=== PATIENT | male | born 1945 | race Caucasian/White ===

== ENCOUNTER 2023-06-18 00:30 | Inpatient (IN) | payer MEDICARE ==
[~2023-06-18] VITALS: Ht 162.6 cm; Wt 51.0 kg
[2023-06-18] VITALS (16 sets, daily range): BP systolic 94–113; BP diastolic 56–70; PULSE 70–110; RESP 18–35; TEMP 97.3–98.9; O2SAT 85–96
[2023-06-18] MEDS: normal saline 1000ML IV soln IVB ONE (01:07)
[2023-06-18 01:29] LABS: ALANINE AMINOTRANSFERASE 9 U/L (12-78); ALBUMIN 2.1 G/DL (3.4-5.0); ALBUMIN/GLOBULIN RATIO 0.6 (1.1-1.5); ALKALINE PHOSPHATASE 54 IU/L (46-116); ANION GAP 8 (8-16); ASPARTATE AMINO TRANSFERASE 38 U/L (10-37); BILIRUBIN,TOTAL 0.4 MG/DL (0.1-1.0); BLOOD UREA NITROGEN 34 MG/DL (7-18); BUN/CREATININE RATIO 38.6 (10.0-20.0); CHLORIDE 106 MMOL/L (99-107); CREATININE 0.88 MG/DL (0.60-1.10); GLUCOSE 144 MG/DL (70-104); POTASSIUM 3.5 MMOL/L (3.5-5.1); SODIUM 141 MMOL/L (135-145); TOTAL CARBON DIOXIDE 27.2 MMOL/L (24-32); TOTAL PROTEIN 5.8 G/DL (6.4-8.2); eCRCL 49 ML/MIN; eGFR 84 ML/MIN
[2023-06-18 01:37] LABS: PRO BRAIN NATRIURETIC PEPTIDE 9840 PG/ML (0-450)
[2023-06-18] MEDS: piperacillin/tazo 3.375gm/50ml 50 ML IV ONE (01:50)
[2023-06-18 02:00] LABS: ABG BASE EXCESS -1.4 mmol/L (-2.0-2.0); ABG HCO3 19.5 mmol/L (22.0-26.0); ABG OXYGEN SATURATION 86.6 % (94-97); ABG PCO2 (T) 25.1 mmHg (35.0-48.0); ABG PH (T) 7.508 (7.340-7.440); ABG PO2 (T) 48.7 mmHg (75.0-100.0); ALLEN'S TEST Modified; FCOHb 0.4 % (0.0-3.9); FHHb 13.3 % (0.0-5.0); FMetHb 0.1 % (0.0-1.5); FO2Hb 86.2 % (94-97); TOTAL HEMOGLOBIN 17.2 G/dl (14.0-17.9)
[2023-06-18] MEDS: albuterol 2.5 MG/3 ML nebule CONTNEB PRN (02:04)
[2023-06-18] MEDS ORDERED: magnesium 4gm in 100ml NS 100 ML IV PRN (02:15)
[2023-06-18] MEDS ORDERED: magnesium hydroxide 30ml (MOM) UD suspension PO PRN (02:15)
[2023-06-18] MEDS ORDERED: morphine 2 MG/ML inj. syringe IV PRN ×2 (02:15)
[2023-06-18] MEDS ORDERED: HYDROcodone/acetaminophen 5mg/325mg tablet PO PRN (02:15)
[2023-06-18] MEDS ORDERED: HYDROcodone/acetaminophen 10/325mg tab PO PRN (02:15)
[2023-06-18] MEDS ORDERED: ondansetron/PF 4mg/2ml inj IV PRN (02:15)
[2023-06-18] MEDS ORDERED: acetaminophen 325mg tablet PO PRN (02:15)
[2023-06-18] MEDS ORDERED: magnesium 2GM in 50ml NS 50 ML IV PRN (02:15)
[2023-06-18] MEDS ORDERED: potassium Cl 40MEQ/1/2NS 520ml 520 ML IV PRN (02:15)
[2023-06-18] MEDS ORDERED: potassium Cl 20 mEq SR tablet PO PRN (02:15)
[2023-06-18 02:52] LABS: HEMATOCRIT 46.9 % (42.0-52.0); MEAN CORPUSCULAR HEMOGLOBIN 34.2 PG (27.0-31.0); MEAN CORPUSCULAR HGB CONC 34.1 g/dL (33.0-36.5); MEAN CORPUSCULAR VOLUME 100.1 FL (78-98); MEAN PLATELET VOLUME 11.1 FL (7.4-10.4); PLATELET COUNT 134 X10'3 (140-440); RED BLOOD COUNT 4.69 X10'6 (4.70-6.10); RED CELL DISTRIBUTION WIDTH 13.5 % (11.5-14.5); WHITE BLOOD COUNT 12.2 X10'3 (4.5-11.0)
[2023-06-18] MEDS ORDERED: LEVO25TA2 PO (02:57)
[2023-06-18 03:01] LABS: D-DIMER 1.78 MG/L FEU (0-0.50)
[2023-06-18 03:09] LABS: OSMOLALITY 296 MOSM/K (280-300)
[2023-06-18 03:16] LABS: CREATINE KINASE 29 U/L (39-308); MAGNESIUM 1.8 MG/DL (1.5-2.4); PHOSPHORUS 2.7 MG/DL (2.3-4.5); POTASSIUM 3.5 MMOL/L (3.5-5.1); THYROID STIMULATING HORMONE 0.38 ulU/ml (0.34-4.50)
[2023-06-18] MEDS: furosemide 10 MG/1 ML 10ml inj IV ONE (03:16)
[2023-06-18] MEDS: normal saline 1000ml 1,000 ML IV SCH (03:21)
[2023-06-18] MEDS: oseltamivir phos 75mg capsule PO SCH (04:02)
[2023-06-18 04:11] LABS: PLATELET ESTIMATE DECREASED; TOTAL CELLS COUNTED 100
[2023-06-18 04:12] LABS: BURR CELLS 2+; GIANT PLATELET FEW; LARGE PLATELETS FEW; SMUDGE CELLS FEW
[2023-06-18 04:17] LABS: BILIRUBIN,URINE NEGATIVE (Neg); CLARITY,URINE CLEAR (Clear); GLUCOSE, URINE NEGATIVE (Neg); KETONES,URINE NEGATIVE (Neg); LEUKOCYTE ESTERASE ,URINE NEGATIVE (Neg); NITRITES, URINE NEGATIVE (Neg); OCCULT BLOOD,URINE NEGATIVE (Neg); PROTEIN,URINE 100 mg/dl (Neg); UROBILINOGEN,URINE 0.2 E.U/dL (0.2-1.0)
[2023-06-18 04:22] LABS: COLOR,URINE DARK YELLOW (Yellow); UA COLLECTION TYPE CLN CATCH MIDSTREAM
[2023-06-18 04:32] LABS: CELLULAR CAST 0-4 /LPF (NEGATIVE); MUCUS STRANDS MANY /LPF (Neg); SQUAMOUS EPITHELIAL CELL,UR FEW /LPF (FEW)
[2023-06-18 04:33] LABS: RENAL CELLS, URINE FEW /HPF
[2023-06-18 04:34] LABS: TRANSITIONAL EPI CELLS,URINE FEW /HPF
[2023-06-18 04:36] LABS: BACTERIA,URINE 1+ /HPF (Neg); RBC,URINE 0-2 /HPF (0-2)
[2023-06-18] MEDS: K and/or MAG REPLACEMENT MC SCH (08:00)
[2023-06-18] MEDS: CefTRIAXone/D5W-Rocephin 1gm 50 ML IV SCH (08:00)
[2023-06-18] MEDS ORDERED: azithromycin 250mg tablet PO SCH (08:00)
[2023-06-18] MEDS: azithromycin/NS 500mg/250ml 250 ML IV SCH (08:00)
[2023-06-18] MEDS: pantoprazole 40 MG vial IV SCH (08:00)
[2023-06-18] MEDS: apixaban 5mg tablet PO SCH (08:00)
[2023-06-18] MEDS ORDERED: heparin, porcine 5000 units/ml vial SQ SCH (08:00)
[2023-06-18] MEDS: metoprolol succinate 25mg (24-HOUR) SR. Tablet PO SCH (08:00)
[2023-06-18] MEDS: docusate sod 100mg capsule PO SCH (08:00)
[2023-06-18] MEDS ORDERED: piperacillin/tazo 3.375gm/50ml 50 ML IV SCH (08:00)
[2023-06-18 08:27] LABS: CHOL/HDL RATIO 1.3 (0.00-4.99); CHOLESTEROL 85 MG/DL (0-200); HDL CHOLESTEROL 66 MG/DL (35-60); LDL CHOLESTEROL 17 MG/DL (50-100); TRIGLYCERIDES 47 MG/DL (20-135)
[2023-06-18] MEDS: piperacillin/tazo 3.375gm/50ml 50 ML IV SCH (10:00)
[2023-06-18] MEDS: furosemide 40mg/4ml inj IV SCH (10:41)
[2023-06-18] MEDS: vancomycin/NS 1 GM ADD-VANTAGE 250 ML IV SCH (10:41)
[2023-06-19] VITALS (13 sets, daily range): BP systolic 114–136; BP diastolic 66–74; PULSE 64–98; RESP 18–32; TEMP 97–97.6; O2SAT 90–97
[2023-06-19 06:44] LABS: BASOPHILS % (AUTO) 0.2 % (0-1); EOSINOPHILS % (AUTO) 0.1 % (0-6); HEMATOCRIT 44.7 % (42.0-52.0); HEMOGLOBIN 15.3 g/dl (14.0-17.9); LYMPHOCYTES # (AUTO) 0.8 X10'3 (1.1-4.8); LYMPHOCYTES % (AUTO) 11.1 % (21-51); MEAN CORPUSCULAR HEMOGLOBIN 34.4 PG (27.0-31.0); MEAN CORPUSCULAR HGB CONC 34.3 g/dL (33.0-36.5); MEAN CORPUSCULAR VOLUME 100.3 FL (78-98); MONOCYTES # (AUTO) 0.6 X10'3 (0-0.9); NEUTROPHILS # (AUTO) 6.1 X10'3 (1.8-7.7); NEUTROPHILS % (AUTO) 80.6 % (42-75); PLATELET COUNT 122 X10'3 (140-440); RED BLOOD COUNT 4.46 X10'6 (4.70-6.10); RED CELL DISTRIBUTION WIDTH 13.6 % (11.5-14.5); WHITE BLOOD COUNT 7.5 X10'3 (4.5-11.0)
[2023-06-19 07:00] LABS: ALANINE AMINOTRANSFERASE 8 U/L (12-78); ALBUMIN 1.7 G/DL (3.4-5.0); ALBUMIN/GLOBULIN RATIO 0.5 (1.1-1.5); ALKALINE PHOSPHATASE 42 IU/L (46-116); ANION GAP 11 (8-16); ASPARTATE AMINO TRANSFERASE 33 U/L (10-37); BILIRUBIN,TOTAL 0.3 MG/DL (0.1-1.0); BLOOD UREA NITROGEN 29 MG/DL (7-18); BUN/CREATININE RATIO 38.7 (10.0-20.0); CALCIUM 7.2 MG/DL (8.5-10.1); CHLORIDE 107 MMOL/L (99-107); CREATININE 0.75 MG/DL (0.60-1.10); GLUCOSE 108 MG/DL (70-104); MAGNESIUM 1.7 MG/DL (1.5-2.4); SODIUM 143 MMOL/L (135-145); TOTAL CARBON DIOXIDE 25.5 MMOL/L (24-32); TOTAL PROTEIN 5.1 G/DL (6.4-8.2); eCRCL 59 ML/MIN; eGFR > 90 ML/MIN
[2023-06-19 07:04] LABS: POTASSIUM 2.6 MMOL/L (3.5-5.1)
[2023-06-19 07:06] LABS: BURR CELLS 2+; LARGE PLATELETS FEW; PLATELET ESTIMATE DECREASED; TOTAL CELLS COUNTED 100; TOXIC GRANULATION 1+
[2023-06-19 07:07] LABS: ROULEAUX 1+
[2023-06-19] MEDS: vancomycin/NS 1 GM ADD-VANTAGE 250 ML IV SCH (08:49)
[2023-06-19] MEDS: potassium Cl 20 mEq SR tablet PO PRN (08:51)
[2023-06-19] MEDS: azithromycin/NS 500mg/250ml 250 ML IV SCH (21:20)
[2023-06-19] MEDS: CefTRIAXone/D5W-Rocephin 1gm 50 ML IV SCH (21:21)
[2023-06-20] VITALS (16 sets, daily range): BP systolic 109–130; BP diastolic 63–90; PULSE 58–92; RESP 16–35; TEMP 97.6–98.2; O2SAT 84–98
[2023-06-20 06:24] LABS: EOSINOPHILS % (AUTO) 0.1 % (0-6); LYMPHOCYTES # (AUTO) 0.9 X10'3 (1.1-4.8); MONOCYTES # (AUTO) 0.9 X10'3 (0-0.9); NEUTROPHILS # (AUTO) 7.3 X10'3 (1.8-7.7); WHITE BLOOD COUNT 9.1 X10'3 (4.5-11.0)
[2023-06-20 06:28] LABS: BASOPHILS % (AUTO) 0.1 % (0-1); HEMATOCRIT 44.9 % (42.0-52.0); HEMOGLOBIN 15.3 g/dl (14.0-17.9); LYMPHOCYTES % (AUTO) 9.7 % (21-51); MEAN CORPUSCULAR HEMOGLOBIN 34.1 PG (27.0-31.0); MEAN CORPUSCULAR VOLUME 100.3 FL (78-98); MEAN PLATELET VOLUME 10.6 FL (7.4-10.4); MONOCYTES % (AUTO) 9.8 % (2-12); NEUTROPHILS % (AUTO) 80.3 % (42-75); PLATELET COUNT 152 X10'3 (140-440); RED BLOOD COUNT 4.48 X10'6 (4.70-6.10); RED CELL DISTRIBUTION WIDTH 13.8 % (11.5-14.5)
[2023-06-20 06:41] LABS: ALANINE AMINOTRANSFERASE 9 U/L (12-78); ALBUMIN 1.7 G/DL (3.4-5.0); ALBUMIN/GLOBULIN RATIO 0.4 (1.1-1.5); ALKALINE PHOSPHATASE 48 IU/L (46-116); ANION GAP 8 (8-16); ASPARTATE AMINO TRANSFERASE 30 U/L (10-37); BILIRUBIN,TOTAL 0.4 MG/DL (0.1-1.0); BLOOD UREA NITROGEN 21 MG/DL (7-18); BUN/CREATININE RATIO 31.3 (10.0-20.0); CALCIUM 7.6 MG/DL (8.5-10.1); CHLORIDE 109 MMOL/L (99-107); CREATININE 0.67 MG/DL (0.60-1.10); GLUCOSE 123 MG/DL (70-104); MAGNESIUM 1.4 MG/DL (1.5-2.4); SODIUM 143 MMOL/L (135-145); TOTAL CARBON DIOXIDE 26.4 MMOL/L (24-32); TOTAL PROTEIN 5.6 G/DL (6.4-8.2); eCRCL 66 ML/MIN; eGFR > 90 ML/MIN
[2023-06-20 06:44] LABS: POTASSIUM 3.7 MMOL/L (3.5-5.1)
[2023-06-20] MEDS: lactose-reduced food (Ensure High Protein) 237ml bottle PO SCH (13:00)
[2023-06-20] MEDS: magnesium Cl slow-release 64mg tablet PO PRN (17:55)
[2023-06-20] MEDS ORDERED: VANCOMYCIN LEVEL IV ONE (19:30)
[2023-06-21] VITALS (13 sets, daily range): BP systolic 108–120; BP diastolic 64–77; PULSE 72–105; RESP 20–38; TEMP 96.9–98.9; O2SAT 92–97
[2023-06-21 06:22] LABS: BASOPHILS % (AUTO) 0.1 % (0-1); EOSINOPHILS % (AUTO) 0.2 % (0-6); HEMATOCRIT 44.5 % (42.0-52.0); HEMOGLOBIN 14.9 g/dl (14.0-17.9); LYMPHOCYTES # (AUTO) 0.8 X10'3 (1.1-4.8); LYMPHOCYTES % (AUTO) 6.9 % (21-51); MEAN CORPUSCULAR HEMOGLOBIN 33.5 PG (27.0-31.0); MEAN CORPUSCULAR HGB CONC 33.5 g/dL (33.0-36.5); MEAN CORPUSCULAR VOLUME 100.2 FL (78-98); MEAN PLATELET VOLUME 10.5 FL (7.4-10.4); MONOCYTES # (AUTO) 0.9 X10'3 (0-0.9); MONOCYTES % (AUTO) 7.5 % (2-12); NEUTROPHILS # (AUTO) 10.4 X10'3 (1.8-7.7); NEUTROPHILS % (AUTO) 85.3 % (42-75); PLATELET COUNT 178 X10'3 (140-440); RED BLOOD COUNT 4.44 X10'6 (4.70-6.10); RED CELL DISTRIBUTION WIDTH 13.2 % (11.5-14.5); WHITE BLOOD COUNT 12.2 X10'3 (4.5-11.0)
[2023-06-21 06:32] LABS: BILIRUBIN,URINE SMALL (Neg); CLARITY,URINE TURBID (Clear); COLOR,URINE AMBER (Yellow); GLUCOSE, URINE NEGATIVE (Neg); KETONES,URINE TRACE mg/dl (Neg); LEUKOCYTE ESTERASE ,URINE NEGATIVE (Neg); NITRITES, URINE NEGATIVE (Neg); OCCULT BLOOD,URINE LARGE (Neg); PH,URINE 6.5 (4.8-8.0); PROTEIN,URINE 100 mg/dl (Neg); UROBILINOGEN,URINE 0.2 E.U/dL (0.2-1.0)
[2023-06-21 06:34] LABS: ALANINE AMINOTRANSFERASE 8 U/L (12-78); ALBUMIN 1.7 G/DL (3.4-5.0); ALBUMIN/GLOBULIN RATIO 0.4 (1.1-1.5); ALKALINE PHOSPHATASE 45 IU/L (46-116); ANION GAP 9 (8-16); ASPARTATE AMINO TRANSFERASE 24 U/L (10-37); BILIRUBIN,TOTAL 0.6 MG/DL (0.1-1.0); BLOOD UREA NITROGEN 18 MG/DL (7-18); BUN/CREATININE RATIO 29.5 (10.0-20.0); CALCIUM 7.2 MG/DL (8.5-10.1); CHLORIDE 108 MMOL/L (99-107); CREATININE 0.61 MG/DL (0.60-1.10); GLUCOSE 117 MG/DL (70-104); MAGNESIUM 1.4 MG/DL (1.5-2.4); SODIUM 144 MMOL/L (135-145); TOTAL CARBON DIOXIDE 27.1 MMOL/L (24-32); TOTAL PROTEIN 5.8 G/DL (6.4-8.2); eCRCL 72 ML/MIN; eGFR > 90 ML/MIN
[2023-06-21 06:54] LABS: UA COLLECTION TYPE VOIDED
[2023-06-21 06:55] LABS: BACTERIA,URINE FEW /HPF (Neg); MUCUS STRANDS FEW /LPF (Neg); RBC,URINE TNTC /HPF (0-2); SQUAMOUS EPITHELIAL CELL,UR FEW /LPF (FEW); WBC,URINE 0-4 /HPF (0-4)
[2023-06-21] MEDS ORDERED: magnesium 4gm in 100ml NS 100 ML IV PRN (09:45)
[2023-06-21] MEDS ORDERED: magnesium 2GM in 50ml NS 50 ML IV PRN (09:45)
[2023-06-21] MEDS ORDERED: magnesium Cl slow-release 64mg tablet PO PRN (09:45)
[2023-06-21] MEDS ORDERED: potassium Cl 40MEQ/1/2NS 520ml 520 ML IV PRN (09:45)
[2023-06-21] MEDS ORDERED: potassium Cl 20 mEq SR tablet PO PRN (09:45)
[2023-06-21] MEDS: pantoprazole 40mg Tablet.DR PO SCH (10:29)
[2023-06-21] MEDS: potassium Cl 20 mEq SR tablet PO PRN (10:30)
[2023-06-21] MEDS: furosemide 40mg/4ml inj IV SCH (12:00)
[2023-06-22] VITALS (13 sets, daily range): BP systolic 108–131; BP diastolic 62–74; PULSE 70–84; RESP 18–25; TEMP 97.7–98.4; O2SAT 91–97
[2023-06-22 06:09] LABS: BASOPHILS % (AUTO) 0.2 % (0-1); EOSINOPHILS # (AUTO) 0.1 X10'3 (0-0.9); HEMOGLOBIN 14.5 g/dl (14.0-17.9); LYMPHOCYTES # (AUTO) 0.9 X10'3 (1.1-4.8); MONOCYTES # (AUTO) 0.9 X10'3 (0-0.9); NEUTROPHILS # (AUTO) 6.1 X10'3 (1.8-7.7); NEUTROPHILS % (AUTO) 76.7 % (42-75)
[2023-06-22 06:12] LABS: HEMATOCRIT 42.1 % (42.0-52.0); LYMPHOCYTES % (AUTO) 11.3 % (21-51); MEAN CORPUSCULAR HEMOGLOBIN 34.2 PG (27.0-31.0); MEAN CORPUSCULAR HGB CONC 34.4 g/dL (33.0-36.5); MEAN CORPUSCULAR VOLUME 99.5 FL (78-98); MEAN PLATELET VOLUME 10.4 FL (7.4-10.4); MONOCYTES % (AUTO) 10.8 % (2-12); PLATELET COUNT 201 X10'3 (140-440); RED BLOOD COUNT 4.22 X10'6 (4.70-6.10); RED CELL DISTRIBUTION WIDTH 13.8 % (11.5-14.5); WHITE BLOOD COUNT 7.9 X10'3 (4.5-11.0)
[2023-06-22 06:32] LABS: ALBUMIN 1.6 G/DL (3.4-5.0); ALBUMIN/GLOBULIN RATIO 0.4 (1.1-1.5); ALKALINE PHOSPHATASE 47 IU/L (46-116); ANION GAP 5 (8-16); ASPARTATE AMINO TRANSFERASE 23 U/L (10-37); BILIRUBIN,TOTAL 0.6 MG/DL (0.1-1.0); BLOOD UREA NITROGEN 20 MG/DL (7-18); BUN/CREATININE RATIO 28.2 (10.0-20.0); CALCIUM 7.4 MG/DL (8.5-10.1); CHLORIDE 109 MMOL/L (99-107); CREATININE 0.71 MG/DL (0.60-1.10); GLUCOSE 115 MG/DL (70-104); MAGNESIUM 1.6 MG/DL (1.5-2.4); POTASSIUM 4.3 MMOL/L (3.5-5.1); PRO BRAIN NATRIURETIC PEPTIDE 2894 PG/ML (0-450); SODIUM 143 MMOL/L (135-145); TOTAL PROTEIN 5.6 G/DL (6.4-8.2); eCRCL 62 ML/MIN; eGFR > 90 ML/MIN
[2023-06-22 06:42] LABS: ALANINE AMINOTRANSFERASE < 6 U/L (12-78)
[2023-06-22 07:25] LABS: LARGE PLATELETS MODERATE; PLATELET ESTIMATE NORMAL
[2023-06-23] VITALS (7 sets, daily range): BP systolic 105–122; BP diastolic 65–70; PULSE 58–85; RESP 18–24; TEMP 97.7–98; O2SAT 93–97
[2023-06-23 06:53] LABS: BASOPHILS % (AUTO) 0.1 % (0-1); EOSINOPHILS % (AUTO) 0.1 % (0-6); HEMATOCRIT 40.9 % (42.0-52.0); HEMOGLOBIN 13.9 g/dl (14.0-17.9); LYMPHOCYTES # (AUTO) 0.6 X10'3 (1.1-4.8); LYMPHOCYTES % (AUTO) 11.6 % (21-51); MEAN CORPUSCULAR HEMOGLOBIN 33.7 PG (27.0-31.0); MEAN CORPUSCULAR VOLUME 99.2 FL (78-98); MEAN PLATELET VOLUME 10.2 FL (7.4-10.4); MONOCYTES # (AUTO) 0.7 X10'3 (0-0.9); MONOCYTES % (AUTO) 13.6 % (2-12); NEUTROPHILS # (AUTO) 3.6 X10'3 (1.8-7.7); NEUTROPHILS % (AUTO) 74.6 % (42-75); PLATELET COUNT 252 X10'3 (140-440); RED BLOOD COUNT 4.13 X10'6 (4.70-6.10); RED CELL DISTRIBUTION WIDTH 13.7 % (11.5-14.5); WHITE BLOOD COUNT 4.8 X10'3 (4.5-11.0)
[2023-06-23 07:02] LABS: ALANINE AMINOTRANSFERASE 7 U/L (12-78); ALBUMIN 1.6 G/DL (3.4-5.0); ALBUMIN/GLOBULIN RATIO 0.4 (1.1-1.5); ALKALINE PHOSPHATASE 51 IU/L (46-116); ANION GAP 7 (8-16); ASPARTATE AMINO TRANSFERASE 14 U/L (10-37); BILIRUBIN,TOTAL 0.3 MG/DL (0.1-1.0); BLOOD UREA NITROGEN 31 MG/DL (7-18); BUN/CREATININE RATIO 44.3 (10.0-20.0); CALCIUM 6.2 MG/DL (8.5-10.1); CHLORIDE 106 MMOL/L (99-107); GLUCOSE 251 MG/DL (70-104); POTASSIUM 3.6 MMOL/L (3.5-5.1); SODIUM 141 MMOL/L (135-145); TOTAL CARBON DIOXIDE 28.5 MMOL/L (24-32); TOTAL PROTEIN 5.5 G/DL (6.4-8.2); eCRCL 63 ML/MIN; eGFR > 90 ML/MIN
[2023-06-23 08:12] LABS: LARGE PLATELETS FEW; PLATELET ESTIMATE NORMAL
[2023-06-23 08:14] LABS: GIANT PLATELET FEW
== END 2023-06-23 18:36 | DRG 871 ==
LOC: ER 00:32 → ED HOLD 02:20 → PCU 3S 05:00
PROVIDERS: ADMIT Family Medicine; ATTEND Internal Medicine
PROC: 5A09357 Assistance with Respiratory Ventilation, Less than 24 Consecutive Hours, Continuous Positive Airway Pressure (ICD-10-PCS; principal; 2023-06-18)
PROC: 5A0935A Assistance with Respiratory Ventilation, Less than 24 Consecutive Hours, High Flow/Velocity Cannula (ICD-10-PCS; 2023-06-18)
PROC: 5A09357 Assistance with Respiratory Ventilation, Less than 24 Consecutive Hours, Continuous Positive Airway Pressure (ICD-10-PCS; 2023-06-19)
PROC: 5A09357 Assistance with Respiratory Ventilation, Less than 24 Consecutive Hours, Continuous Positive Airway Pressure (ICD-10-PCS; 2023-06-20)
PROC: 5A0945A Assistance with Respiratory Ventilation, 24-96 Consecutive Hours, High Flow/Velocity Cannula (ICD-10-PCS; 2023-06-20)
PROC: 5A0945A Assistance with Respiratory Ventilation, 24-96 Consecutive Hours, High Flow/Velocity Cannula (ICD-10-PCS; 2023-06-23)
DX: A41.9 Sepsis, unspecified organism (principal); I50.33 Acute on chronic diastolic (congestive) heart failure; J18.9 Pneumonia, unspecified organism; J96.01 Acute respiratory failure with hypoxia; J10.00 Influenza due to other identified influenza virus with unspecified type of pneumonia; J15.9 Unspecified bacterial pneumonia; E46 Unspecified protein-calorie malnutrition; Z68.1 Body mass index [BMI] 19.9 or less, adult; Z20.822 Contact with and (suspected) exposure to COVID-19; E88.09 Other disorders of plasma-protein metabolism, not elsewhere classified; I48.0 Paroxysmal atrial fibrillation; Z79.899 Other long term (current) drug therapy
CPT/HCPCS: 36415; 36600; 71045; 71250; 74176; 80053; 80061; 81001; 82550; 82803; 82948; 83605; 83735; 83880; 83930; 84100; 84132; 84145; 84443; 84484; 85007; 85008; 85018; 85025; 85379; 87040; 87081; 87088; 87502; 87503; 87634; 87811; 93005; 93306; 94640; 94660; 94760; 99285; A7015; C9113; G0378; J0456; J0696; J1940; J2543; J2920; J3370; J7030; J7040